=== PATIENT | male | born 1940 | race Caucasian/White ===

== ENCOUNTER 2024-05-26 13:42 | Observation (INO) | payer MEDICARE, BC ==
[2024-05-26 14:21] LABS: #Basophils 0.03 10x3/uL (0.0-0.2); #Eosinophils 0.28 10x3/uL (0.0-0.5); #Monocytes 0.85 10x3/uL (0.0-1.1); #Neutrophils 5.53 10x3/uL (1.5-8.4); %Basophils 0.3 % (0.0-2.0); %Eosinophils 3.2 % (0.0-6.0); %Lymphocytes 22.6 % (18.0-47.0); %Monocytes 9.8 % (0.0-10.0); %Neutrophils 63.5 % (40.0-75.0); Hematocrit 47.2 % (38.8-50.0); Hemoglobin 15.7 g/dL (13.5-17.5); Mean Corpuscular HGB CONC 33.3 g/dL (32.0-36.0); Mean Corpuscular Volume 96.1 fL (81.2-95.1); Mean Platelet Volume 10.3 fL (7.4-10.4); Platelet Count 237 10x3/uL (150-450); RBC Distribution Width 13.6 % (11.5-14.5); Red Blood Cell (RBC) Count 4.91 10x6/uL (4.32-5.72); White Blood Cell (WBC) Count 8.71 10x3/uL (3.5-10.5)
[2024-05-26 14:34] LABS: PTT 26.9 sec (22.0-33.0); Prothrombin Time 11.1 sec (9.5-12.1)
[2024-05-26] MEDS ORDERED: Senokot S 8.6-50 MG TAB PO PRN (14:43)
[2024-05-26] MEDS ORDERED: Ondansetron PF 4 MG/2 ML Vial IVP PRN (14:43)
[2024-05-26] MEDS ORDERED: Acetaminophen/Codeine 30-300mg Tablet PO PRN ×2 (14:43)
[2024-05-26] MEDS ORDERED: Calcium Carbonate 500 MG ChewTAB PO PRN (14:43)
[2024-05-26] MEDS ORDERED: Loperamide HCl 2 MG CAP PO PRN (14:43)
[2024-05-26 15:09] LABS: Troponin I Less than 0.010 ng/mL (< 0.028)
[2024-05-26 15:11] LABS: ALT (SGPT) 23 U/L (Less than 45); AST (SGOT) 27 U/L (11-34); Albumin 4.7 g/dL (3.1-4.5); Alkaline Phosphatase 110 U/L (40-110); Anion Gap 13 mmol/L (10-20); BUN (Urea Nitrogen) 20 mg/dL (8.4-25.7); Bilirubin, Total 1.4 mg/dL (0.3-1.2); Calc. Creatinine Clearance 0 mL/min (70-130); Calcium 9.9 mg/dL (7.8-10.44); Carbon Dioxide 24 mmol/L (23-31); Chloride 108 mmol/L (98-107); Estimated GFR 57; Globulin 3.3 g/dL (2.4-3.5); Glucose 77 mg/dL (83-110); Magnesium 2.3 mg/dL (1.6-2.6); Potassium 4.4 mmol/L (3.5-5.1); Sodium 141 mmol/L (136-145)
[2024-05-26 16:18] VITALS: BMI 27.1
[2024-05-27] MEDS: Sodium Chloride 0.9% 1,000 ML IV SCH (00:58)
[2024-05-27 04:25] LABS: #Basophils 0.03 10x3/uL (0.0-0.2); #Eosinophils 0.19 10x3/uL (0.0-0.5); #Monocytes 0.68 10x3/uL (0.0-1.1); #Neutrophils 4.02 10x3/uL (1.5-8.4); %Basophils 0.5 % (0.0-2.0); %Eosinophils 2.9 % (0.0-6.0); %Lymphocytes 24.3 % (18.0-47.0); %Monocytes 10.4 % (0.0-10.0); %Neutrophils 61.3 % (40.0-75.0); Hematocrit 39.9 % (38.8-50.0); Hemoglobin 13.5 g/dL (13.5-17.5); Mean Corpuscular HGB CONC 33.8 g/dL (32.0-36.0); Mean Corpuscular Hemoglobin 32.2 pg (27.0-33.0); Mean Corpuscular Volume 95.2 fL (81.2-95.1); Mean Platelet Volume 10.1 fL (7.4-10.4); Platelet Count 185 10x3/uL (150-450); RBC Distribution Width 13.5 % (11.5-14.5); Red Blood Cell (RBC) Count 4.19 10x6/uL (4.32-5.72); White Blood Cell (WBC) Count 6.55 10x3/uL (3.5-10.5)
[2024-05-27 04:39] LABS: INR-International Normal Ratio 1.1; PTT 27.2 sec (22.0-33.0); Prothrombin Time 11.6 sec (9.5-12.1)
[2024-05-27 04:44] LABS: Anion Gap 14 mmol/L (10-20); BUN (Urea Nitrogen) 19 mg/dL (8.4-25.7); Calc. Creatinine Clearance 60 mL/min (70-130); Calcium 8.9 mg/dL (7.8-10.44); Carbon Dioxide 19 mmol/L (23-31); Chloride 112 mmol/L (98-107); Estimated GFR 67; Glucose 95 mg/dL (83-110); Potassium 4.1 mmol/L (3.5-5.1); Sodium 141 mmol/L (136-145)
[2024-05-27] MEDS ORDERED: Gentamicin 80 MG/2 ML VIAL ONE (07:14)
[2024-05-27] MEDS ORDERED: CEFAZOLIN 1 GM VIAL ONE ×2 (07:14→08:35)
[2024-05-27] MEDS ORDERED: Lidocaine 1% (PF) 30 ML VIAL ONE (07:14)
[2024-05-27 07:27] VITALS: TEMP 97.7
[2024-05-27] MEDS ORDERED: fentaNYL 50 mcg/mL 1 mL Vial ONE (08:06)
[2024-05-27] MEDS ORDERED: Midazolam HCl 2 mg/2 ml Vial ONE (08:07)
[2024-05-27 11:04] VITALS: BP 148/68
[2024-05-27] MEDS ORDERED: Iopamidol 300 61% 100 ML VIAL FS ONE (11:22)
== END 2024-05-27 18:17 | disposition home or self-care (01) ==
LOC: CSHERS 13:42 → CSHTELE 14:43
PROVIDERS: ADMIT Specialist; ATTEND Specialist
DX: I44.2 Atrioventricular block, complete (principal); I10 Essential (primary) hypertension; I25.10 Atherosclerotic heart disease of native coronary artery without angina pectoris; I25.5 Ischemic cardiomyopathy; E78.5 Hyperlipidemia, unspecified; M19.90 Unspecified osteoarthritis, unspecified site; Z95.5 Presence of coronary angioplasty implant and graft; Z90.79 Acquired absence of other genital organ(s); Z88.8 Allergy status to other drugs, medicaments and biological substances; Z79.82 Long term (current) use of aspirin; Z79.02 Long term (current) use of antithrombotics/antiplatelets; Z79.899 Other long term (current) drug therapy
CPT/HCPCS: 33208; 71045 ×2; 80048; 80053; 83735; 83880; 84484; 85025 ×2; 85610 ×2; 85730 ×2; 86850; 86900; 86901; 93005; 99285; C1769; C1785; C1898 ×2; G0378 ×3; J0690; J1580; J2250; J3010; J7030; Q9967; 36415; 99152; 99153